=== PATIENT | female | born 1960 | race African-American/Black ===

== ENCOUNTER 2016-12-17 23:28 | Emergency (ER) | payer OTHER ==
[~2016-12-17] VITALS: Ht 177.8 cm; Wt 136.4 kg
[2016-12-18 00:07] LABS: GLUCOSE,POINT OF CARE 115 MG/DL (70-110)
[2016-12-18] MEDS ORDERED: TOPI25 PO (00:29)
[2016-12-18] MEDS ORDERED: OMEG-12 PO (00:29)
[2016-12-18] MEDS ORDERED: VENL50TA44 PO (00:29)
[2016-12-18] MEDS ORDERED: QUET200T PO (00:29)
[2016-12-18] MEDS ORDERED: LURA40 PO (00:29)
[2016-12-18] MEDS ORDERED: AMIT50TA3 PO (00:29)
[2016-12-18] MEDS ORDERED: LITH300C3 PO (00:29)
[2016-12-18] MEDS ORDERED: POTA25TA7 PO (00:29)
[2016-12-18 01:08] LABS: BASOPHILS # (AUTO) 0.03 K/uL (0.00-0.20); BASOPHILS % (AUTO) 0.3 % (0.0-2.0); EOSINOPHILS # (AUTO) 0.02 K/uL (0.00-0.70); EOSINOPHILS % (AUTO) 0.25 % (1.0-6.0); HEMATOCRIT 38.6 % (36-46); HEMOGLOBIN 12.4 g/dL (12.0-16.0); LYMPHOCYTES # (AUTO) 1.5 K/uL (1.0-4.8); LYMPHOCYTES % (AUTO) 17.1 % (22.0-44.0); MEAN CORPUSCULAR HEMOGLOBIN 25.5 pg (26.0-34.0); MEAN CORPUSCULAR HGB CONC 32.2 G/dL (31.0-37.0); MEAN CORPUSCULAR VOLUME 79 fL (80-100); MONOCYTES # (AUTO) 0.5 K/uL (0.1-1.0); MONOCYTES % (AUTO) 5.8 % (2.0-9.0); NEUTROPHILS # (AUTO) 6.6 K/uL (1.8-7.7); NEUTROPHILS % (AUTO) 76.5 % (40.0-70.0); PLATELET COUNT (AUTO) 247 K/uL (150-450); RED BLOOD CELL COUNT(AUTO) 4.86 MIL/uL (4.00-5.20); WHITE BLOOD COUNT (AUTO) 8.6 K/uL (4.5-11.0)
[2016-12-18 01:18] LABS: INR 1.1 (0.9-1.1); PROTHROMBIN TIME 11.1 SEC (9.4-11.6)
[2016-12-18 01:19] LABS: CALCIUM, TOTAL 9.6 mg/dL (8.8-10.5); CREATININE 1.26 mg/dL (0.60-1.30); POTASSIUM 3.4 mmol/L (3.5-5.1)
[2016-12-18 01:25] LABS: ALBUMIN 3.8 g/dL (3.4-5.0); AMMONIA 19 umol/L (11-32); BILIRUBIN,TOTAL 0.3 mg/dL (0.1-1.0); TOTAL PROTEIN, SERUM 7.6 g/dL (6.4-8.2)
[2016-12-18 01:32] LABS: TROPONIN I < 0.02 ng/mL (0.00-0.05)
[2016-12-18] MEDS ORDERED: POTASSIUM CHLORIDE 20 MEQ ER TABLET PO ONE (01:45)
[2016-12-18 02:13] VITALS: BP 135/89
== END 2016-12-18 04:04 | disposition home or self-care (01) ==
LOC: EDBD 23:31 → EMS 23:31
DX: M79.7 Fibromyalgia (principal); I10 Essential (primary) hypertension; Z88.8 Allergy status to other drugs, medicaments and biological substances
CPT/HCPCS: 70450; 82948; 82962; 93005; 99285

== ENCOUNTER 2017-01-22 14:23 | Inpatient (IN) | payer MEDICAID, OTHER ==
[~2017-01-22] VITALS: Ht 180.3 cm; Wt 130.2 kg
[~2017-01-22 14:23] MED LIST: AMIT50TA3 PO; OMEG-12 PO; QUET200T PO; TRAZ-147 PO
[2017-01-22] MEDS ORDERED: ASPIRIN 81 MG CHEWABLE TABLET PO ONE (14:45)
[2017-01-22 15:49] LABS: BASOPHILS # (AUTO) 0.01 K/uL (0.00-0.20); BASOPHILS % (AUTO) 0.1 % (0.0-2.0); EOSINOPHILS # (AUTO) 0.03 K/uL (0.00-0.70); EOSINOPHILS % (AUTO) 0.27 % (1.0-6.0); HEMATOCRIT 47.4 % (36-46); HEMOGLOBIN 15.6 g/dL (12.0-16.0); LYMPHOCYTES # (AUTO) 2.4 K/uL (1.0-4.8); LYMPHOCYTES % (AUTO) 19.9 % (22.0-44.0); MEAN CORPUSCULAR VOLUME 79 fL (80-100); MONOCYTES # (AUTO) 0.3 K/uL (0.1-1.0); MONOCYTES % (AUTO) 2.1 % (2.0-9.0); NEUTROPHILS # (AUTO) 9.4 K/uL (1.8-7.7); NEUTROPHILS % (AUTO) 77.6 % (40.0-70.0); RED BLOOD CELL COUNT(AUTO) 6.01 MIL/uL (4.00-5.20); RED CELL DISTRIBUTION WIDTH 15.3 % (11.5-14.5)
[2017-01-22 16:06] LABS: PLATELET COUNT (AUTO) 173 K/uL (150-450)
[2017-01-22 16:16] LABS: ANION GAP 19 mmol/L (8-16); ASPARTATE AMINOTRANSFERASE 16 U/L (15-37); BILIRUBIN,TOTAL 0.3 mg/dL (0.1-1.0); CARBON DIOXIDE 18 mmol/L (22-29); CHLORIDE 104 mmol/L (98-107); CREATINE KINASE, TOTAL 78 U/L (26-192); POTASSIUM 4.2 mmol/L (3.5-5.1); SODIUM SERUM 141 mmol/L (136-145); TOTAL PROTEIN, SERUM 8.9 g/dL (6.4-8.2); UREA NITROGEN, BLOOD 15 mg/dL (7-18)
[2017-01-22 16:25] LABS: B-TYPE NATRIURETIC PEPTIDE 5 pg/mL (0-100)
[2017-01-22 16:29] LABS: ALANINE AMINOTRANSFERASE 19 U/L (12-78); ALBUMIN 4.2 g/dL (3.4-5.0); CALCIUM, TOTAL 9.8 mg/dL (8.8-10.5); CREATINE KINASE MB < 0.5 ng/mL (0-5); GLOMERULAR FILTR. RATE CALC > 60 mL/min (>60)
[2017-01-22] MEDS ORDERED: ACETAMINOPHEN 500 MG TABLET PO ONE (17:00)
[2017-01-22 17:04] LABS: APPEARANCE,URINE CLOUDY (CLEAR); GLUCOSE, URINE (UA) NEGATIVE (NEGATIVE); KETONES,URINE 15 mg/dL (NEGATIVE); LEUKOCYTE ESTERASE ,URINE SMALL (NEGATIVE); OCCULT BLOOD,URINE SMALL (NEGATIVE); PH,URINE 5.5 (5.0-8.0); PROTEIN,URINE POS 1+ (NEGATIVE)
[2017-01-22 17:08] LABS: ADD UA MICROSCOPIC YES
[2017-01-22 17:09] LABS: SQUAMOUS EPITHELIAL CELL,UR Moderate /LPF (None Seen)
[2017-01-22] MEDS ORDERED: LEVOFLOXACIN 500 MG TABLET PO ONE (17:45)
[2017-01-22] MEDS ORDERED: AMOX TR/POT CLAV 875 MG/125 MG TABLET PO ONE (18:00)
[2017-01-22] MEDS ORDERED: QUEtiapine FUMARATE 200 MG TABLET PO ONE (18:00)
[2017-01-22] MEDS ORDERED: ZOLPIDEM TARTRATE 10 MG TABLET PO PRN (18:45)
[2017-01-22 19:18] LABS: CHOL/HDL RATIO 5.1 (3.9-5.7)
[2017-01-22] MEDS: LORazepam 2 MG TABLET PO PRN (19:45)
[2017-01-22] MEDS: QUEtiapine FUMARATE 200 MG TABLET PO SCH (21:00)
[2017-01-22] MEDS: AMITRIPTYLINE HCL 50 MG TABLET PO SCH (21:11)
[2017-01-22] MEDS: TraZODone HCL 100 MG TABLET PO SCH (21:12)
[2017-01-23 00:10] VITALS: BP 98/74
[2017-01-23] MEDS: QUEtiapine FUMARATE 200 MG TABLET PO SCH ×2 (08:07→20:29)
[2017-01-23] MEDS ORDERED: ACETAMINOPHEN 325 MG TABLET PO PRN (12:15)
[2017-01-23 14:24] VITALS: BP 115/70
[2017-01-23] MEDS: QUEtiapine FUMARATE 100 MG TABLET PO PRN (17:52)
[2017-01-23 20:05] VITALS: BP 99/70
[2017-01-23] MEDS: AMITRIPTYLINE HCL 50 MG TABLET PO SCH (20:29)
[2017-01-23] MEDS: NITROFURANTOIN/NITROFURAN MAC 100 MG CAPSULE [MACROBID] PO SCH (20:29)
[2017-01-23] MEDS: SIMVASTATIN 10 MG TABLET PO SCH (20:29)
[2017-01-23] MEDS: TraZODone HCL 100 MG TABLET PO SCH (20:29)
[2017-01-23 20:53] VITALS: BP 134/70
[2017-01-24] MEDS: NITROFURANTOIN/NITROFURAN MAC 100 MG CAPSULE [MACROBID] PO SCH ×2 (09:01→20:54)
[2017-01-24] MEDS: OMEGA-3/DHA/EPA/FISH OIL 500 MG CAPSULE PO SCH (09:01)
[2017-01-24] MEDS: QUEtiapine FUMARATE 200 MG TABLET PO SCH ×2 (09:01→20:54)
[2017-01-24 09:19] VITALS: BP 100/49
[2017-01-24] MEDS: QUEtiapine FUMARATE 100 MG TABLET PO PRN ×2 (12:23→19:37)
[2017-01-24 19:30] VITALS: BP 120/72
[2017-01-24 20:50] VITALS: BP 123/96
[2017-01-24] MEDS: TraZODone HCL 100 MG TABLET PO SCH (20:54)
[2017-01-24] MEDS: AMITRIPTYLINE HCL 50 MG TABLET PO SCH (20:54)
[2017-01-24] MEDS: SIMVASTATIN 10 MG TABLET PO SCH (20:55)
[2017-01-25 04:27] VITALS: BP 110/65
[2017-01-25 09:00] VITALS: BP 114/74
[2017-01-25] MEDS: NITROFURANTOIN/NITROFURAN MAC 100 MG CAPSULE [MACROBID] PO SCH ×2 (09:18→16:24)
[2017-01-25] MEDS: OMEGA-3/DHA/EPA/FISH OIL 500 MG CAPSULE PO SCH (09:19)
[2017-01-25] MEDS: QUEtiapine FUMARATE 200 MG TABLET PO SCH ×2 (09:20→20:16)
[2017-01-25] MEDS: QUEtiapine FUMARATE 100 MG TABLET PO PRN ×2 (12:41→16:58)
[2017-01-25 16:20] VITALS: BP 160/84
[2017-01-25] MEDS: AMITRIPTYLINE HCL 50 MG TABLET PO SCH (20:16)
[2017-01-25] MEDS: TraZODone HCL 100 MG TABLET PO SCH (20:16)
[2017-01-25] MEDS: SIMVASTATIN 10 MG TABLET PO SCH (20:18)
[2017-01-26] MEDS: QUEtiapine FUMARATE 200 MG TABLET PO SCH ×2 (08:22→20:20)
[2017-01-26] MEDS: NITROFURANTOIN/NITROFURAN MAC 100 MG CAPSULE [MACROBID] PO SCH ×2 (08:22→16:39)
[2017-01-26] MEDS: OMEGA-3/DHA/EPA/FISH OIL 500 MG CAPSULE PO SCH (08:23)
[2017-01-26 09:30] VITALS: BP 142/98
[2017-01-26] MEDS: QUEtiapine FUMARATE 100 MG TABLET PO PRN ×3 (12:43→23:51)
[2017-01-26] MEDS: LORazepam 2 MG TABLET PO PRN (15:57)
[2017-01-26 16:04] VITALS: BP 139/87
[2017-01-26] MEDS: AMITRIPTYLINE HCL 50 MG TABLET PO SCH (20:21)
[2017-01-26] MEDS: SIMVASTATIN 10 MG TABLET PO SCH (20:21)
[2017-01-26] MEDS: TraZODone HCL 100 MG TABLET PO SCH (20:21)
[2017-01-26 23:45] VITALS: BP 107/90
[2017-01-27 02:45] VITALS: BP 129/75
[2017-01-27 08:00] VITALS: BP 121/73
[2017-01-27] MEDS: OMEGA-3/DHA/EPA/FISH OIL 500 MG CAPSULE PO SCH (09:54)
[2017-01-27] MEDS: QUEtiapine FUMARATE 200 MG TABLET PO SCH ×2 (09:55→21:10)
[2017-01-27] MEDS: NITROFURANTOIN/NITROFURAN MAC 100 MG CAPSULE [MACROBID] PO SCH ×2 (09:55→16:04)
[2017-01-27] MEDS: QUEtiapine FUMARATE 100 MG TABLET PO PRN ×2 (10:58→15:13)
[2017-01-27] MEDS: LORazepam 2 MG TABLET PO PRN ×2 (10:58→15:13)
[2017-01-27 17:40] VITALS: BP 131/76
[2017-01-27] MEDS: TraZODone HCL 100 MG TABLET PO SCH (21:10)
[2017-01-27] MEDS: AMITRIPTYLINE HCL 50 MG TABLET PO SCH (21:11)
[2017-01-27] MEDS: SIMVASTATIN 10 MG TABLET PO SCH (21:11)
[2017-01-28] MEDS: QUEtiapine FUMARATE 100 MG TABLET PO PRN ×2 (03:55→15:21)
[2017-01-28 03:58] VITALS: BP 124/74
[2017-01-28 08:10] VITALS: BP 130/79
[2017-01-28] MEDS: QUEtiapine FUMARATE 200 MG TABLET PO SCH ×2 (09:06→20:21)
[2017-01-28] MEDS: NITROFURANTOIN/NITROFURAN MAC 100 MG CAPSULE [MACROBID] PO SCH ×2 (09:06→16:34)
[2017-01-28] MEDS: OMEGA-3/DHA/EPA/FISH OIL 500 MG CAPSULE PO SCH (09:06)
[2017-01-28] MEDS: LORazepam 2 MG TABLET PO PRN (15:21)
[2017-01-28 17:15] VITALS: BP 145/97
[2017-01-28] MEDS: AMITRIPTYLINE HCL 50 MG TABLET PO SCH (20:21)
[2017-01-28] MEDS: TraZODone HCL 100 MG TABLET PO SCH (20:22)
[2017-01-28] MEDS: SIMVASTATIN 10 MG TABLET PO SCH (20:22)
[2017-01-29 04:06] VITALS: BP 122/80
[2017-01-29] MEDS: QUEtiapine FUMARATE 100 MG TABLET PO PRN ×2 (04:12→14:38)
[2017-01-29 08:49] VITALS: BP 113/70
[2017-01-29] MEDS: QUEtiapine FUMARATE 200 MG TABLET PO SCH ×2 (08:57→20:51)
[2017-01-29] MEDS: OMEGA-3/DHA/EPA/FISH OIL 500 MG CAPSULE PO SCH (08:58)
[2017-01-29 16:38] VITALS: BP 122/76
[2017-01-29] MEDS: AMITRIPTYLINE HCL 50 MG TABLET PO SCH (20:51)
[2017-01-29] MEDS: PRAZOSIN HCL 1 MG CAPSULE PO SCH (20:51)
[2017-01-29] MEDS: TraZODone HCL 100 MG TABLET PO SCH (20:51)
[2017-01-29] MEDS: SIMVASTATIN 10 MG TABLET PO SCH (20:51)
[2017-01-30 08:05] VITALS: BP 118/68
[2017-01-30] MEDS: QUEtiapine FUMARATE 200 MG TABLET PO SCH ×2 (08:28→20:18)
[2017-01-30] MEDS: OMEGA-3/DHA/EPA/FISH OIL 500 MG CAPSULE PO SCH (08:28)
[2017-01-30] MEDS: QUEtiapine FUMARATE 100 MG TABLET PO PRN ×2 (13:29→18:25)
[2017-01-30 16:29] VITALS: BP 127/76
[2017-01-30] MEDS: LORazepam 2 MG TABLET PO PRN (18:25)
[2017-01-30] MEDS: AMITRIPTYLINE HCL 50 MG TABLET PO SCH (20:17)
[2017-01-30] MEDS: TraZODone HCL 100 MG TABLET PO SCH (20:17)
[2017-01-30] MEDS: SIMVASTATIN 10 MG TABLET PO SCH (20:18)
[2017-01-30] MEDS: PRAZOSIN HCL 1 MG CAPSULE PO SCH (20:18)
[2017-01-31 06:10] VITALS: BP 130/69
[2017-01-31] MEDS: QUEtiapine FUMARATE 100 MG TABLET PO PRN ×2 (06:10→16:16)
[2017-01-31 08:50] VITALS: BP 145/88
[2017-01-31] MEDS: OMEGA-3/DHA/EPA/FISH OIL 500 MG CAPSULE PO SCH (09:04)
[2017-01-31] MEDS: QUEtiapine FUMARATE 200 MG TABLET PO SCH (09:04)
[2017-01-31] MEDS ORDERED: SIMV-259 PO (12:18)
[2017-01-31] MEDS ORDERED: PRAZ1 PO (12:19)
[2017-01-31] MEDS: LORazepam 2 MG TABLET PO PRN (16:16)
== END 2017-01-31 16:45 | disposition home or self-care (01) | DRG 750 ==
LOC: EMS 14:26 → AHU 23:54 → 3EI 01-25 04:05
PROVIDERS: ADMIT Psychiatry & Neurology Child & Adolescent Psychiatry; ATTEND Psychiatry & Neurology Child & Adolescent Psychiatry
DX: F25.1 Schizoaffective disorder, depressive type (principal); R45.851 Suicidal ideations; I69.354 Hemiplegia and hemiparesis following cerebral infarction affecting left non-dominant side; I10 Essential (primary) hypertension; F41.9 Anxiety disorder, unspecified; E78.5 Hyperlipidemia, unspecified; F17.200 Nicotine dependence, unspecified, uncomplicated; G47.00 Insomnia, unspecified; J44.9 Chronic obstructive pulmonary disease, unspecified; J98.11 Atelectasis; K59.00 Constipation, unspecified; M79.7 Fibromyalgia; N39.0 Urinary tract infection, site not specified; Z79.82 Long term (current) use of aspirin; F14.90 Cocaine use, unspecified, uncomplicated; M54.9 Dorsalgia, unspecified; Z56.0 Unemployment, unspecified; Z71.6 Tobacco abuse counseling; D72.829 Elevated white blood cell count, unspecified; Z79.899 Other long term (current) drug therapy; Z88.3 Allergy status to other anti-infective agents; Z88.8 Allergy status to other drugs, medicaments and biological substances
CPT/HCPCS: 87081; 87086; 93005; 99285

== ENCOUNTER 2017-08-22 11:17 | Inpatient (IN) | payer MEDICAID, OTHER ==
[~2017-08-22] VITALS: Ht 180.3 cm; Wt 142.0 kg
[~2017-08-22 11:17] MED LIST changes: -AMIT50TA3 PO; +AUD NEB; +DIVA500T35 PO; +DSS100 PO; +IPRNEB NEB; -OMEG-12 PO; +PRAZ1 PO; +PREG75 PO; -QUET200T PO; +QUET200XR PO; -TRAZ-147 PO; +VENL-67 PO; +VENL-68 PO
[2017-08-22] MEDS ORDERED: ATOR20TA86 PO (11:36)
[2017-08-22] MEDS ORDERED: VIST50 PO (11:36)
[2017-08-22] MEDS ORDERED: GABA-531 PO (11:36)
[2017-08-22 12:05] LABS: EOSINOPHILS % (AUTO) 1.5 % (1.0-6.0); HEMATOCRIT 37.8 % (36-46); HEMOGLOBIN 12.6 g/dL (12.0-16.0); LYMPHOCYTES # (AUTO) 1.8 K/uL (1.0-4.8); LYMPHOCYTES % (AUTO) 26.1 % (22.0-44.0); MEAN CORPUSCULAR HEMOGLOBIN 26.4 pg (26.0-34.0); MEAN CORPUSCULAR HGB CONC 33.3 G/dL (31.0-37.0); MEAN CORPUSCULAR VOLUME 79 fL (80-100); MONOCYTES # (AUTO) 1.1 K/uL (0.1-1.0); MONOCYTES % (AUTO) 15.7 % (2.0-9.0); NEUTROPHILS # (AUTO) 3.8 K/uL (1.8-7.7); NEUTROPHILS % (AUTO) 55.7 % (40.0-70.0); PLATELET COUNT (AUTO) 291 K/uL (150-450); RED BLOOD CELL COUNT(AUTO) 4.76 MIL/uL (4.00-5.20); RED CELL DISTRIBUTION WIDTH 16.7 % (11.5-14.5)
[2017-08-22 12:14] LABS: ANION GAP 7 mmol/L (8-16); CARBON DIOXIDE 27 mmol/L (22-29); CHLORIDE 104 mmol/L (98-107); CREATININE 0.91 mg/dL (0.60-1.30); GLOMERULAR FILTR. RATE CALC > 60 mL/min (>60); GLUCOSE,RANDOM 77 mg/dL (70-110); SODIUM SERUM 138 mmol/L (136-145); UREA NITROGEN, BLOOD 19 mg/dL (7-18)
[2017-08-22 12:20] LABS: ALANINE AMINOTRANSFERASE 15 U/L (12-78); ALBUMIN 3.3 g/dL (3.4-5.0); ALKALINE PHOSPHATASE 104 U/L (46-116); ASPARTATE AMINOTRANSFERASE 12 U/L (15-37); BILIRUBIN,TOTAL 0.1 mg/dL (0.1-1.0); TOTAL PROTEIN, SERUM 7.8 g/dL (6.4-8.2)
[2017-08-22 12:36] LABS: AMPHET/METH SCREEN,URINE NEGATIVE (NEGATIVE); BARBITURATE SCREEN, URINE NEGATIVE (NEGATIVE); BENZODIAZEPINES SCREEN,URINE NEGATIVE (NEGATIVE); CANNABINOID SCREEN,URINE NEGATIVE (NEGATIVE); COCAINE SCREEN,URINE NEGATIVE (NEGATIVE); METHADONE SCREEN, URINE NEGATIVE (NEGATIVE); OPIATE SCREEN,URINE NEGATIVE (NEGATIVE)
[2017-08-22 12:38] LABS: PHENCYCLIDINE SCREEN,URINE NEGATIVE (NEGATIVE)
[2017-08-22 19:38] VITALS: BP 137/80
[2017-08-22] MEDS ORDERED: BENZOCAINE/MENTHOL LOZENGE MM PRN (20:00)
[2017-08-22] MEDS ORDERED: CloNIDine HCL 0.1 MG TABLET PO PRN (20:00)
[2017-08-22] MEDS ORDERED: MAGNESIUM HYDROXIDE SUSPENSION 30 ML UDCUP PO PRN (20:00)
[2017-08-22] MEDS ORDERED: ONDANSETRON HCL 4 MG TABLET PO PRN (20:00)
[2017-08-22] MEDS ORDERED: BACITRACIN 28.4 GM OINTMENT TP PRN (20:00)
[2017-08-22] MEDS ORDERED: PETROLATUM,WHITE 71 GM JELLY TP PRN (20:00)
[2017-08-22] MEDS ORDERED: MAG HYDROX/AL HYDROX/SIMETH ES 30 ML SUSPENSION UDCUP PO PRN (20:00)
[2017-08-22] MEDS ORDERED: ALBUTEROL SULFATE HFA 90 MCG/PUFF 8 GM INHALER IH PRN (20:00)
[2017-08-22] MEDS ORDERED: LOPERAMIDE HCL 2 MG CAPSULE PO PRN (20:00)
[2017-08-22] MEDS ORDERED: IBUPROFEN 600 MG TABLET PO PRN (20:00)
[2017-08-22] MEDS ORDERED: ACETAMINOPHEN 325 MG TABLET PO PRN (20:00)
[2017-08-22] MEDS: ZOLPIDEM TARTRATE 10 MG TABLET PO PRN (20:19)
[2017-08-22] MEDS: HALOPERIDOL 5 MG TABLET PO PRN (20:19)
[2017-08-22] MEDS: ATORVASTATIN CALCIUM 20 MG TABLET PO SCH (21:50)
[2017-08-23] MEDS: DOCUSATE SODIUM 100 MG CAPSULE PO SCH (09:23)
[2017-08-23] MEDS: OMEPRAZOLE 20 MG CAPSULE PO SCH (09:23)
[2017-08-23] MEDS: ATENOLOL 50 MG TABLET PO SCH (09:24)
[2017-08-23] MEDS: PREGABALIN 75 MG CAPSULE PO SCH ×2 (09:25→15:53)
[2017-08-23] MEDS: HALOPERIDOL 5 MG TABLET PO PRN ×2 (09:27→15:53)
[2017-08-23 09:30] VITALS: BP 114/79
[2017-08-23 10:08] LABS: CHOL/HDL RATIO 5.2 (3.9-5.7); FREE T4 (FREE THYROXINE) 0.49 ng/dL (0.76-1.46); THYROID STIMULATING HORMONE 2.74 uIU/mL (0.36-3.74)
[2017-08-23] MEDS: DIVALPROEX SODIUM 500 MG ER TABLET PO SCH (17:08)
[2017-08-23 17:42] VITALS: BP 135/80
[2017-08-23 20:56] VITALS: BP 129/78
[2017-08-23] MEDS: ATORVASTATIN CALCIUM 20 MG TABLET PO SCH (20:59)
[2017-08-23] MEDS: PRAZOSIN HCL 1 MG CAPSULE PO SCH (20:59)
[2017-08-23] MEDS: QUEtiapine FUMARATE 200 MG ER TABLET PO SCH (20:59)
[2017-08-24 08:00] VITALS: BP 119/69
[2017-08-24] MEDS: DIVALPROEX SODIUM 500 MG ER TABLET PO SCH ×2 (09:37→16:01)
[2017-08-24] MEDS: VENLAFAXINE HCL 75 MG ER CAPSULE PO SCH (09:38)
[2017-08-24] MEDS: OMEPRAZOLE 20 MG CAPSULE PO SCH (09:38)
[2017-08-24] MEDS: DOCUSATE SODIUM 100 MG CAPSULE PO SCH (09:38)
[2017-08-24] MEDS: PREGABALIN 75 MG CAPSULE PO SCH ×2 (09:39→16:01)
[2017-08-24] MEDS: ATENOLOL 50 MG TABLET PO SCH (09:39)
[2017-08-24] MEDS: HALOPERIDOL 5 MG TABLET PO PRN (16:01)
[2017-08-24 18:55] VITALS: BP 113/71
[2017-08-24] MEDS: PRAZOSIN HCL 1 MG CAPSULE PO SCH (20:08)
[2017-08-24] MEDS: QUEtiapine FUMARATE 200 MG ER TABLET PO SCH (20:08)
[2017-08-24] MEDS: ATORVASTATIN CALCIUM 20 MG TABLET PO SCH (20:08)
[2017-08-25 02:00] VITALS: BP 118/78
[2017-08-25] MEDS: ZOLPIDEM TARTRATE 10 MG TABLET PO PRN (02:03)
[2017-08-25 09:22] VITALS: BP 116/53
[2017-08-25] MEDS: DIVALPROEX SODIUM 500 MG ER TABLET PO SCH ×2 (09:22→16:08)
[2017-08-25] MEDS: VENLAFAXINE HCL 75 MG ER CAPSULE PO SCH (09:22)
[2017-08-25] MEDS: PREGABALIN 75 MG CAPSULE PO SCH ×2 (09:23→16:09)
[2017-08-25] MEDS: DOCUSATE SODIUM 100 MG CAPSULE PO SCH (09:23)
[2017-08-25] MEDS: ATENOLOL 50 MG TABLET PO SCH (09:23)
[2017-08-25] MEDS: OMEGA-3/DHA/EPA/FISH OIL 1,000 MG CAPSULE PO SCH (09:23)
[2017-08-25] MEDS: OMEPRAZOLE 20 MG CAPSULE PO SCH (09:23)
[2017-08-25] MEDS: HALOPERIDOL 5 MG TABLET PO PRN ×2 (09:25→14:31)
[2017-08-25 17:41] VITALS: BP 114/68
[2017-08-25] MEDS: ATORVASTATIN CALCIUM 20 MG TABLET PO SCH (20:09)
[2017-08-25] MEDS: PRAZOSIN HCL 1 MG CAPSULE PO SCH (20:10)
[2017-08-25] MEDS: QUEtiapine FUMARATE 200 MG ER TABLET PO SCH (20:10)
[2017-08-26 08:14] VITALS: BP 141/75
[2017-08-26] MEDS: OMEPRAZOLE 20 MG CAPSULE PO SCH (08:20)
[2017-08-26] MEDS: DIVALPROEX SODIUM 500 MG ER TABLET PO SCH ×2 (08:21→16:22)
[2017-08-26] MEDS: OMEGA-3/DHA/EPA/FISH OIL 1,000 MG CAPSULE PO SCH (08:21)
[2017-08-26] MEDS: ATENOLOL 50 MG TABLET PO SCH (08:21)
[2017-08-26] MEDS: VENLAFAXINE HCL 75 MG ER CAPSULE PO SCH (08:21)
[2017-08-26] MEDS: PREGABALIN 75 MG CAPSULE PO SCH ×2 (08:21→16:22)
[2017-08-26] MEDS: HALOPERIDOL 5 MG TABLET PO PRN ×2 (08:21→16:21)
[2017-08-26] MEDS: DOCUSATE SODIUM 100 MG CAPSULE PO SCH (08:32)
[2017-08-26] MEDS: LORazepam 2 MG TABLET PO PRN ×2 (11:00→16:21)
[2017-08-26 16:40] VITALS: BP 129/79
[2017-08-26] MEDS: QUEtiapine FUMARATE 200 MG ER TABLET PO SCH (21:52)
[2017-08-26] MEDS: ATORVASTATIN CALCIUM 20 MG TABLET PO SCH (21:52)
[2017-08-26] MEDS: PRAZOSIN HCL 1 MG CAPSULE PO SCH (21:52)
[2017-08-27] MEDS: ZOLPIDEM TARTRATE 10 MG TABLET PO PRN (01:15)
[2017-08-27 04:48] VITALS: BP 135/77
[2017-08-27 08:43] VITALS: BP 117/72
[2017-08-27] MEDS: VENLAFAXINE HCL 75 MG ER CAPSULE PO SCH (09:08)
[2017-08-27] MEDS: DIVALPROEX SODIUM 500 MG ER TABLET PO SCH ×2 (09:08→17:22)
[2017-08-27] MEDS: OMEPRAZOLE 20 MG CAPSULE PO SCH (09:09)
[2017-08-27] MEDS: PREGABALIN 75 MG CAPSULE PO SCH ×2 (09:10→17:21)
[2017-08-27] MEDS: OMEGA-3/DHA/EPA/FISH OIL 1,000 MG CAPSULE PO SCH (09:10)
[2017-08-27] MEDS: ATENOLOL 50 MG TABLET PO SCH (09:10)
[2017-08-27] MEDS: DOCUSATE SODIUM 100 MG CAPSULE PO SCH (09:11)
[2017-08-27] MEDS: ATORVASTATIN CALCIUM 20 MG TABLET PO SCH (20:07)
[2017-08-27] MEDS: PRAZOSIN HCL 1 MG CAPSULE PO SCH (20:07)
[2017-08-27] MEDS: QUEtiapine FUMARATE 200 MG ER TABLET PO SCH (20:08)
[2017-08-27 20:22] VITALS: BP 130/79
[2017-08-28] MEDS: HALOPERIDOL 5 MG TABLET PO PRN ×2 (04:12→08:24)
[2017-08-28 05:23] VITALS: BP 97/59
[2017-08-28] MEDS: DOCUSATE SODIUM 100 MG CAPSULE PO SCH (08:06)
[2017-08-28] MEDS: PREGABALIN 75 MG CAPSULE PO SCH ×2 (08:07→16:36)
[2017-08-28] MEDS: DIVALPROEX SODIUM 500 MG ER TABLET PO SCH ×2 (08:07→16:36)
[2017-08-28] MEDS: VENLAFAXINE HCL 75 MG ER CAPSULE PO SCH (08:07)
[2017-08-28] MEDS: OMEGA-3/DHA/EPA/FISH OIL 1,000 MG CAPSULE PO SCH (08:07)
[2017-08-28] MEDS: OMEPRAZOLE 20 MG CAPSULE PO SCH (08:08)
[2017-08-28] MEDS: ATENOLOL 50 MG TABLET PO SCH (08:08)
[2017-08-28 08:32] VITALS: BP 111/63
[2017-08-28 17:11] VITALS: BP 121/73
[2017-08-28] MEDS: PRAZOSIN HCL 1 MG CAPSULE PO SCH (20:14)
[2017-08-28] MEDS: ATORVASTATIN CALCIUM 20 MG TABLET PO SCH (20:14)
[2017-08-28] MEDS: QUEtiapine FUMARATE 200 MG ER TABLET PO SCH (20:14)
[2017-08-29] MEDS: HALOPERIDOL 5 MG TABLET PO PRN ×2 (01:03→16:07)
[2017-08-29] MEDS: ZOLPIDEM TARTRATE 10 MG TABLET PO PRN ×2 (01:03→21:52)
[2017-08-29 01:37] VITALS: BP 101/56
[2017-08-29 08:48] VITALS: BP 103/53
[2017-08-29] MEDS: ATENOLOL 50 MG TABLET PO SCH (09:00)
[2017-08-29] MEDS: VENLAFAXINE HCL 75 MG ER CAPSULE PO SCH (09:01)
[2017-08-29] MEDS: DIVALPROEX SODIUM 500 MG ER TABLET PO SCH ×2 (09:01→16:05)
[2017-08-29] MEDS: OMEGA-3/DHA/EPA/FISH OIL 1,000 MG CAPSULE PO SCH (09:01)
[2017-08-29] MEDS: PREGABALIN 75 MG CAPSULE PO SCH ×2 (09:01→16:06)
[2017-08-29] MEDS: DOCUSATE SODIUM 100 MG CAPSULE PO SCH (09:01)
[2017-08-29] MEDS: OMEPRAZOLE 20 MG CAPSULE PO SCH (09:01)
[2017-08-29] MEDS ORDERED: LORazepam 2 MG/ML VIAL IM ONE (14:15)
[2017-08-29] MEDS ORDERED: DiphenhydrAMINE HCL 50 MG/ML VIAL IM ONE (14:15)
[2017-08-29] MEDS ORDERED: HALOPERIDOL LACTATE 5 MG/ML VIAL IM ONE (14:15)
[2017-08-29] MEDS: LORazepam 2 MG TABLET PO PRN (16:07)
[2017-08-29 17:08] VITALS: BP 118/68
[2017-08-29] MEDS: ATORVASTATIN CALCIUM 20 MG TABLET PO SCH (20:12)
[2017-08-29] MEDS: PRAZOSIN HCL 1 MG CAPSULE PO SCH (20:12)
[2017-08-29] MEDS: QUEtiapine FUMARATE 200 MG ER TABLET PO SCH (20:12)
[2017-08-30 06:14] VITALS: BP 116/71
[2017-08-30 08:00] VITALS: BP 128/85
[2017-08-30] MEDS: VENLAFAXINE HCL 75 MG ER CAPSULE PO SCH (08:54)
[2017-08-30] MEDS: DIVALPROEX SODIUM 500 MG ER TABLET PO SCH ×2 (08:54→16:08)
[2017-08-30] MEDS: DOCUSATE SODIUM 100 MG CAPSULE PO SCH (08:54)
[2017-08-30] MEDS: OMEGA-3/DHA/EPA/FISH OIL 1,000 MG CAPSULE PO SCH (08:55)
[2017-08-30] MEDS: OMEPRAZOLE 20 MG CAPSULE PO SCH (08:56)
[2017-08-30] MEDS: PREGABALIN 75 MG CAPSULE PO SCH ×2 (08:56→16:08)
[2017-08-30] MEDS: ATENOLOL 50 MG TABLET PO SCH (08:56)
[2017-08-30 16:46] VITALS: BP 133/88
[2017-08-30] MEDS: PRAZOSIN HCL 1 MG CAPSULE PO SCH (20:15)
[2017-08-30] MEDS: ATORVASTATIN CALCIUM 20 MG TABLET PO SCH (20:15)
[2017-08-30] MEDS: QUEtiapine FUMARATE 200 MG ER TABLET PO SCH (20:15)
[2017-08-30] MEDS: ZOLPIDEM TARTRATE 10 MG TABLET PO PRN (20:31)
[2017-08-31 01:12] VITALS: BP 127/79
[2017-08-31 08:00] VITALS: BP 108/63
[2017-08-31] MEDS: ATENOLOL 50 MG TABLET PO SCH (09:00)
[2017-08-31] MEDS: DIVALPROEX SODIUM 500 MG ER TABLET PO SCH (09:52)
[2017-08-31] MEDS: OMEPRAZOLE 20 MG CAPSULE PO SCH (09:53)
[2017-08-31] MEDS: VENLAFAXINE HCL 75 MG ER CAPSULE PO SCH (09:53)
[2017-08-31] MEDS: PREGABALIN 75 MG CAPSULE PO SCH (09:53)
[2017-08-31] MEDS: OMEGA-3/DHA/EPA/FISH OIL 1,000 MG CAPSULE PO SCH (09:53)
[2017-08-31] MEDS: DOCUSATE SODIUM 100 MG CAPSULE PO SCH (09:58)
[2017-08-31] MEDS ORDERED: VENL-67 PO (12:08)
[2017-08-31] MEDS ORDERED: ATEN50TA PO (12:09)
[2017-08-31] MEDS ORDERED: DSS100 PO (12:11)
[2017-08-31] MEDS ORDERED: OMEG-135 PO (12:11)
[2017-08-31] MEDS ORDERED: PRAZ1 PO (12:12)
[2017-08-31] MEDS ORDERED: OMEP20 PO (12:12)
== END 2017-08-31 16:12 | disposition home or self-care (01) | DRG 750 ==
LOC: EMS 11:18 → 3EI 17:13
PROVIDERS: ADMIT Psychiatry & Neurology Psychiatry; ATTEND Psychiatry & Neurology Psychiatry
DX: F25.1 Schizoaffective disorder, depressive type (principal); R45.851 Suicidal ideations; I69.354 Hemiplegia and hemiparesis following cerebral infarction affecting left non-dominant side; I10 Essential (primary) hypertension; F60.3 Borderline personality disorder; E78.00 Pure hypercholesterolemia, unspecified; E78.5 Hyperlipidemia, unspecified; F41.9 Anxiety disorder, unspecified; G47.00 Insomnia, unspecified; G89.29 Other chronic pain; J44.9 Chronic obstructive pulmonary disease, unspecified; E66.9 Obesity, unspecified; K57.90 Diverticulosis of intestine, part unspecified, without perforation or abscess without bleeding; M79.7 Fibromyalgia; K59.00 Constipation, unspecified; F17.200 Nicotine dependence, unspecified, uncomplicated; F12.90 Cannabis use, unspecified, uncomplicated; Z88.8 Allergy status to other drugs, medicaments and biological substances; Z79.899 Other long term (current) drug therapy; Z56.0 Unemployment, unspecified; Z91.5 Personal history of self-harm; M54.9 Dorsalgia, unspecified; Z71.6 Tobacco abuse counseling; Z68.41 Body mass index [BMI] 40.0-44.9, adult
CPT/HCPCS: 84439; 84443; 87081; 99285; G0480

== ENCOUNTER 2017-09-12 03:13 | Inpatient (IN) | payer MEDICAID, OTHER ==
[~2017-09-12] VITALS: Ht 180.3 cm; Wt 142.0 kg
[~2017-09-12 03:13] MED LIST changes: +ATEN50TA PO; +ATOR20TA86 PO; -AUD NEB; -IPRNEB NEB; +OMEG-135 PO; +OMEP20 PO; -VENL-68 PO
[2017-09-12 03:48] LABS: BASOPHILS % (AUTO) 1.2 % (0.0-2.0); EOSINOPHILS % (AUTO) 0.8 % (1.0-6.0); HEMATOCRIT 35.7 % (36-46); HEMOGLOBIN 12.1 g/dL (12.0-16.0); MEAN CORPUSCULAR HEMOGLOBIN 27.3 pg (26.0-34.0); MEAN CORPUSCULAR HGB CONC 33.9 G/dL (31.0-37.0); MEAN CORPUSCULAR VOLUME 81 fL (80-100); MONOCYTES # (AUTO) 0.6 K/uL (0.1-1.0); MONOCYTES % (AUTO) 11.2 % (2.0-9.0); NEUTROPHILS # (AUTO) 2.3 K/uL (1.8-7.7); NEUTROPHILS % (AUTO) 46.8 % (40.0-70.0); PLATELET COUNT (AUTO) 106 K/uL (150-450); RED BLOOD CELL COUNT(AUTO) 4.43 MIL/uL (4.00-5.20); RED CELL DISTRIBUTION WIDTH 16.2 % (11.5-14.5)
[2017-09-12 04:00] LABS: ANION GAP 8 mmol/L (8-16); CALCIUM, TOTAL 8.8 mg/dL (8.8-10.5); CARBON DIOXIDE 28 mmol/L (22-29); CHLORIDE 105 mmol/L (98-107); GLOMERULAR FILTR. RATE CALC > 60 mL/min (>60); GLUCOSE,RANDOM 108 mg/dL (70-110); POTASSIUM 3.6 mmol/L (3.5-5.1); SODIUM SERUM 141 mmol/L (136-145); UREA NITROGEN, BLOOD 17 mg/dL (7-18)
[2017-09-12 04:06] LABS: ALANINE AMINOTRANSFERASE 17 U/L (12-78); ALBUMIN 3.1 g/dL (3.4-5.0); ALKALINE PHOSPHATASE 85 U/L (46-116); ASPARTATE AMINOTRANSFERASE 14 U/L (15-37); BILIRUBIN,TOTAL 0.1 mg/dL (0.1-1.0); TOTAL PROTEIN, SERUM 7.2 g/dL (6.4-8.2); VALPROIC ACID 136 mcg/mL (50-100)
[2017-09-12 04:23] LABS: AMPHET/METH SCREEN,URINE NEGATIVE (NEGATIVE); BARBITURATE SCREEN, URINE NEGATIVE (NEGATIVE); BENZODIAZEPINES SCREEN,URINE NEGATIVE (NEGATIVE); CANNABINOID SCREEN,URINE POSITIVE (NEGATIVE); COCAINE SCREEN,URINE NEGATIVE (NEGATIVE); METHADONE SCREEN, URINE NEGATIVE (NEGATIVE); OPIATE SCREEN,URINE NEGATIVE (NEGATIVE); PHENCYCLIDINE SCREEN,URINE NEGATIVE (NEGATIVE)
[2017-09-12 06:12] LABS: SALICYLATE < 2.8 mg/dL (2.8-20.0)
[2017-09-12 06:15] LABS: VALPROIC ACID 119 mcg/mL (50-100)
[2017-09-12 06:16] LABS: ACETAMINOPHEN < 2 mcg/mL (10-30)
[2017-09-12] MEDS ORDERED: MAG HYDROX/AL HYDROX/SIMETH ES 30 ML SUSPENSION UDCUP PO PRN (09:00)
[2017-09-12] MEDS ORDERED: BACITRACIN 28.4 GM OINTMENT TP PRN (09:00)
[2017-09-12] MEDS ORDERED: LOPERAMIDE HCL 2 MG CAPSULE PO PRN (09:00)
[2017-09-12] MEDS ORDERED: CloNIDine HCL 0.1 MG TABLET PO PRN (09:00)
[2017-09-12] MEDS ORDERED: BENZOCAINE/MENTHOL LOZENGE MM PRN (09:00)
[2017-09-12] MEDS ORDERED: MAGNESIUM HYDROXIDE SUSPENSION 30 ML UDCUP PO PRN (09:00)
[2017-09-12] MEDS ORDERED: ACETAMINOPHEN 325 MG TABLET PO PRN (09:00)
[2017-09-12] MEDS ORDERED: ALBUTEROL SULFATE HFA 90 MCG/PUFF 8 GM INHALER IH PRN (09:00)
[2017-09-12] MEDS ORDERED: PETROLATUM,WHITE 71 GM JELLY TP PRN (09:00)
[2017-09-12] MEDS ORDERED: ONDANSETRON HCL 4 MG TABLET PO PRN (09:00)
[2017-09-12] MEDS: PREGABALIN 75 MG CAPSULE PO SCH ×3 (09:24→16:43)
[2017-09-12] MEDS: OMEGA-3/DHA/EPA/FISH OIL 1,000 MG CAPSULE PO SCH ×2 (09:24→13:48)
[2017-09-12] MEDS: ATENOLOL 50 MG TABLET PO SCH ×2 (09:25→13:47)
[2017-09-12] MEDS: DOCUSATE SODIUM 100 MG CAPSULE PO SCH ×2 (09:27→13:48)
[2017-09-12] MEDS: OMEPRAZOLE 20 MG CAPSULE PO SCH ×2 (09:27→13:47)
[2017-09-12 12:35] LABS: APPEARANCE,URINE CLEAR (CLEAR); BILIRUBIN,URINE NEGATIVE (NEGATIVE); GLUCOSE, URINE (UA) NEGATIVE (NEGATIVE); KETONES,URINE TRACE mg/dL (NEGATIVE); LEUKOCYTE ESTERASE ,URINE NEGATIVE (NEGATIVE); NITRATE,URINE NEGATIVE (NEGATIVE); OCCULT BLOOD,URINE NEGATIVE (NEGATIVE); PH,URINE 5.5 (5.0-8.0); PROTEIN,URINE TRACE (NEGATIVE)
[2017-09-12 13:06] VITALS: BP 134/72
[2017-09-12] MEDS: DIVALPROEX SODIUM 500 MG ER TABLET PO SCH (16:43)
[2017-09-12] MEDS: HALOPERIDOL 5 MG TABLET PO PRN (16:45)
[2017-09-12] MEDS: LORazepam 2 MG TABLET PO PRN (16:46)
[2017-09-12 18:52] VITALS: BP 131/78
[2017-09-12] MEDS ORDERED: PRAZOSIN HCL 1 MG CAPSULE PO SCH (21:00)
[2017-09-12] MEDS: QUEtiapine FUMARATE 200 MG ER TABLET PO SCH (21:41)
[2017-09-12] MEDS: PRAZOSIN HCL 1 MG CAPSULE PO SCH (21:41)
[2017-09-12] MEDS: ATORVASTATIN CALCIUM 20 MG TABLET PO SCH (21:41)
[2017-09-12] MEDS: ZOLPIDEM TARTRATE 10 MG TABLET PO PRN (22:37)
[2017-09-13 01:00] VITALS: BP 138/74
[2017-09-13 06:58] LABS: CHOL/HDL RATIO 4.3 (3.9-5.7)
[2017-09-13 08:45] VITALS: BP 102/64
[2017-09-13] MEDS: DIVALPROEX SODIUM 500 MG ER TABLET PO SCH ×2 (09:08→17:46)
[2017-09-13] MEDS: OMEPRAZOLE 20 MG CAPSULE PO SCH (09:08)
[2017-09-13] MEDS: ATENOLOL 50 MG TABLET PO SCH (09:08)
[2017-09-13] MEDS: PREGABALIN 75 MG CAPSULE PO SCH ×2 (09:08→17:46)
[2017-09-13] MEDS: VENLAFAXINE HCL 75 MG ER CAPSULE PO SCH (09:09)
[2017-09-13] MEDS: DOCUSATE SODIUM 100 MG CAPSULE PO SCH (09:09)
[2017-09-13] MEDS: OMEGA-3/DHA/EPA/FISH OIL 1,000 MG CAPSULE PO SCH (09:09)
[2017-09-13 17:02] VITALS: BP 101/54
[2017-09-13] MEDS: PRAZOSIN HCL 1 MG CAPSULE PO SCH (20:07)
[2017-09-13] MEDS: QUEtiapine FUMARATE 200 MG ER TABLET PO SCH (20:08)
[2017-09-13] MEDS: ATORVASTATIN CALCIUM 20 MG TABLET PO SCH (20:08)
[2017-09-14 01:49] VITALS: BP 102/63
[2017-09-14] MEDS: DOCUSATE SODIUM 100 MG CAPSULE PO SCH (08:13)
[2017-09-14] MEDS: DIVALPROEX SODIUM 500 MG ER TABLET PO SCH ×2 (08:13→16:17)
[2017-09-14] MEDS: VENLAFAXINE HCL 75 MG ER CAPSULE PO SCH (08:14)
[2017-09-14] MEDS: OMEGA-3/DHA/EPA/FISH OIL 1,000 MG CAPSULE PO SCH (08:14)
[2017-09-14] MEDS: PREGABALIN 75 MG CAPSULE PO SCH ×2 (08:14→16:16)
[2017-09-14] MEDS: OMEPRAZOLE 20 MG CAPSULE PO SCH (08:15)
[2017-09-14] MEDS: ATENOLOL 50 MG TABLET PO SCH (08:15)
[2017-09-14 09:20] VITALS: BP 142/81
[2017-09-14] MEDS: LORazepam 2 MG TABLET PO PRN (16:18)
[2017-09-14] MEDS: HALOPERIDOL 5 MG TABLET PO PRN (16:18)
[2017-09-14] MEDS: QUEtiapine FUMARATE 200 MG ER TABLET PO SCH (21:08)
[2017-09-14] MEDS: ATORVASTATIN CALCIUM 20 MG TABLET PO SCH (21:08)
[2017-09-14] MEDS: PRAZOSIN HCL 1 MG CAPSULE PO SCH (21:08)
[2017-09-14] MEDS: ZOLPIDEM TARTRATE 10 MG TABLET PO PRN (21:10)
[2017-09-15] MEDS: LORazepam 2 MG TABLET PO PRN (00:24)
[2017-09-15] MEDS: HALOPERIDOL 5 MG TABLET PO PRN (00:30)
[2017-09-15 00:42] VITALS: BP 123/67
[2017-09-15] MEDS: DIVALPROEX SODIUM 500 MG ER TABLET PO SCH ×2 (08:38→16:10)
[2017-09-15] MEDS: PREGABALIN 75 MG CAPSULE PO SCH ×2 (08:38→16:10)
[2017-09-15] MEDS: OMEGA-3/DHA/EPA/FISH OIL 1,000 MG CAPSULE PO SCH (08:38)
[2017-09-15] MEDS: OMEPRAZOLE 20 MG CAPSULE PO SCH (08:38)
[2017-09-15] MEDS: ATENOLOL 50 MG TABLET PO SCH (08:38)
[2017-09-15] MEDS: VENLAFAXINE HCL 75 MG ER CAPSULE PO SCH (08:38)
[2017-09-15] MEDS: DOCUSATE SODIUM 100 MG CAPSULE PO SCH (08:38)
[2017-09-15 13:09] VITALS: BP 124/84
[2017-09-15 19:59] VITALS: BP 125/75
[2017-09-15] MEDS: ATORVASTATIN CALCIUM 20 MG TABLET PO SCH (20:55)
[2017-09-15] MEDS: QUEtiapine FUMARATE 200 MG ER TABLET PO SCH (20:55)
[2017-09-15] MEDS: PRAZOSIN HCL 1 MG CAPSULE PO SCH (20:55)
[2017-09-15] MEDS: ZOLPIDEM TARTRATE 10 MG TABLET PO PRN (21:10)
[2017-09-16] MEDS: LORazepam 2 MG TABLET PO PRN (01:28)
[2017-09-16 01:29] VITALS: BP 104/76
[2017-09-16] MEDS: OMEPRAZOLE 20 MG CAPSULE PO SCH (08:55)
[2017-09-16] MEDS: DIVALPROEX SODIUM 500 MG ER TABLET PO SCH ×2 (08:55→16:08)
[2017-09-16] MEDS: OMEGA-3/DHA/EPA/FISH OIL 1,000 MG CAPSULE PO SCH (08:55)
[2017-09-16] MEDS: VENLAFAXINE HCL 75 MG ER CAPSULE PO SCH (08:55)
[2017-09-16] MEDS: PREGABALIN 75 MG CAPSULE PO SCH ×2 (08:55→16:08)
[2017-09-16] MEDS: ATENOLOL 50 MG TABLET PO SCH (08:56)
[2017-09-16] MEDS: DOCUSATE SODIUM 100 MG CAPSULE PO SCH (08:56)
[2017-09-16 10:45] VITALS: BP 108/56
[2017-09-16 10:55] VITALS: BP 108/56
[2017-09-16 17:26] VITALS: BP 117/78
[2017-09-16] MEDS: ATORVASTATIN CALCIUM 20 MG TABLET PO SCH (20:03)
[2017-09-16] MEDS: PRAZOSIN HCL 1 MG CAPSULE PO SCH (20:03)
[2017-09-16] MEDS: QUEtiapine FUMARATE 200 MG ER TABLET PO SCH (20:03)
[2017-09-17 05:15] VITALS: BP 116/58
[2017-09-17] MEDS ORDERED: OMEGA-3/DHA/EPA/FISH OIL 1,000 MG CAPSULE PO SCH (09:00)
[2017-09-17] MEDS: DIVALPROEX SODIUM 500 MG ER TABLET PO SCH ×2 (09:15→16:52)
[2017-09-17] MEDS: DOCUSATE SODIUM 100 MG CAPSULE PO SCH (09:15)
[2017-09-17] MEDS: OMEGA-3/DHA/EPA/FISH OIL 1,000 MG CAPSULE PO SCH (09:16)
[2017-09-17] MEDS: VENLAFAXINE HCL 75 MG ER CAPSULE PO SCH (09:16)
[2017-09-17] MEDS: PREGABALIN 75 MG CAPSULE PO SCH ×2 (09:16→16:52)
[2017-09-17] MEDS: OMEPRAZOLE 20 MG CAPSULE PO SCH (09:17)
[2017-09-17] MEDS: ATENOLOL 50 MG TABLET PO SCH (09:17)
[2017-09-17 09:43] VITALS: BP 120/74
[2017-09-17 17:02] VITALS: BP 130/78
[2017-09-17] MEDS: QUEtiapine FUMARATE 200 MG ER TABLET PO SCH (20:05)
[2017-09-17] MEDS: PRAZOSIN HCL 1 MG CAPSULE PO SCH (20:05)
[2017-09-17] MEDS: ATORVASTATIN CALCIUM 20 MG TABLET PO SCH (20:05)
[2017-09-17] MEDS: ZOLPIDEM TARTRATE 10 MG TABLET PO PRN (21:46)
[2017-09-18 00:50] VITALS: BP 104/66
[2017-09-18 06:59] LABS: BASOPHILS % (AUTO) 0.6 % (0.0-2.0); EOSINOPHILS % (AUTO) 1.1 % (1.0-6.0); HEMATOCRIT 36.6 % (36-46); HEMOGLOBIN 12.7 g/dL (12.0-16.0); LYMPHOCYTES # (AUTO) 2.1 K/uL (1.0-4.8); LYMPHOCYTES % (AUTO) 39.2 % (22.0-44.0); MEAN CORPUSCULAR HEMOGLOBIN 27.9 pg (26.0-34.0); MEAN CORPUSCULAR HGB CONC 34.7 G/dL (31.0-37.0); MEAN CORPUSCULAR VOLUME 80 fL (80-100); MONOCYTES # (AUTO) 0.9 K/uL (0.1-1.0); MONOCYTES % (AUTO) 16.7 % (2.0-9.0); NEUTROPHILS # (AUTO) 2.2 K/uL (1.8-7.7); NEUTROPHILS % (AUTO) 42.4 % (40.0-70.0); PLATELET COUNT (AUTO) 198 K/uL (150-450); RED BLOOD CELL COUNT(AUTO) 4.56 MIL/uL (4.00-5.20); RED CELL DISTRIBUTION WIDTH 16.2 % (11.5-14.5)
[2017-09-18 07:09] LABS: CALCIUM, TOTAL 8.2 mg/dL (8.8-10.5); CREATININE 1.26 mg/dL (0.60-1.30); MAGNESIUM 1.6 mg/dL (1.80-2.40); PHOSPHORUS 3.5 mg/dL (2.5-4.9); POTASSIUM 3.9 mmol/L (3.5-5.1)
[2017-09-18] MEDS: ATENOLOL 50 MG TABLET PO SCH (09:00)
[2017-09-18] MEDS ORDERED: CALCIUM POLYCARBOPHIL 625 MG TABLET PO SCH (09:00)
[2017-09-18] MEDS ORDERED: OMEGA-3/DHA/EPA/FISH OIL 1,000 MG CAPSULE PO SCH (09:00)
[2017-09-18] MEDS: DIVALPROEX SODIUM 500 MG ER TABLET PO SCH ×2 (09:11→16:06)
[2017-09-18] MEDS: DOCUSATE SODIUM 100 MG CAPSULE PO SCH (09:11)
[2017-09-18] MEDS: VENLAFAXINE HCL 75 MG ER CAPSULE PO SCH (09:11)
[2017-09-18] MEDS: PREGABALIN 75 MG CAPSULE PO SCH ×2 (09:12→16:06)
[2017-09-18] MEDS: OMEGA-3/DHA/EPA/FISH OIL 1,000 MG CAPSULE PO SCH (09:12)
[2017-09-18] MEDS: OMEPRAZOLE 20 MG CAPSULE PO SCH (09:12)
[2017-09-18 09:28] VITALS: BP 96/56
[2017-09-18 16:09] VITALS: BP 123/77
[2017-09-18] MEDS: QUEtiapine FUMARATE 200 MG ER TABLET PO SCH (20:43)
[2017-09-18] MEDS: PRAZOSIN HCL 1 MG CAPSULE PO SCH (20:43)
[2017-09-18] MEDS: ATORVASTATIN CALCIUM 20 MG TABLET PO SCH (20:43)
[2017-09-18] MEDS: LORazepam 2 MG TABLET PO PRN (20:43)
[2017-09-18] MEDS: ZOLPIDEM TARTRATE 10 MG TABLET PO PRN (20:43)
[2017-09-19 00:26] VITALS: BP 111/67
[2017-09-19] MEDS: DOCUSATE SODIUM 100 MG CAPSULE PO SCH (08:37)
[2017-09-19] MEDS: PREGABALIN 75 MG CAPSULE PO SCH ×2 (08:38→17:14)
[2017-09-19] MEDS: VENLAFAXINE HCL 75 MG ER CAPSULE PO SCH (08:38)
[2017-09-19] MEDS: DIVALPROEX SODIUM 500 MG ER TABLET PO SCH ×2 (08:38→17:14)
[2017-09-19] MEDS: OMEPRAZOLE 20 MG CAPSULE PO SCH (08:39)
[2017-09-19] MEDS: ATENOLOL 50 MG TABLET PO SCH (08:39)
[2017-09-19] MEDS: OMEGA-3/DHA/EPA/FISH OIL 1,000 MG CAPSULE PO SCH (08:39)
[2017-09-19 09:21] VITALS: BP 109/70
[2017-09-19 17:00] VITALS: BP 132/65
[2017-09-19] MEDS: MAGNESIUM OXIDE 400 MG TABLET PO SCH (17:15)
[2017-09-19] MEDS: QUEtiapine FUMARATE 200 MG ER TABLET PO SCH (21:04)
[2017-09-19] MEDS: ZOLPIDEM TARTRATE 10 MG TABLET PO PRN (21:04)
[2017-09-19] MEDS: PRAZOSIN HCL 1 MG CAPSULE PO SCH (21:06)
[2017-09-19] MEDS: ATORVASTATIN CALCIUM 20 MG TABLET PO SCH (21:06)
[2017-09-20 01:12] VITALS: BP 104/52
[2017-09-20] MEDS: VENLAFAXINE HCL 75 MG ER CAPSULE PO SCH (08:31)
[2017-09-20] MEDS: OMEPRAZOLE 20 MG CAPSULE PO SCH (08:31)
[2017-09-20] MEDS: DOCUSATE SODIUM 100 MG CAPSULE PO SCH (08:31)
[2017-09-20] MEDS: MAGNESIUM OXIDE 400 MG TABLET PO SCH ×2 (08:31→16:13)
[2017-09-20] MEDS: DIVALPROEX SODIUM 500 MG ER TABLET PO SCH ×2 (08:31→16:13)
[2017-09-20] MEDS: OMEGA-3/DHA/EPA/FISH OIL 1,000 MG CAPSULE PO SCH (08:31)
[2017-09-20] MEDS: ATENOLOL 50 MG TABLET PO SCH (08:32)
[2017-09-20] MEDS: PREGABALIN 75 MG CAPSULE PO SCH ×2 (08:32→16:13)
[2017-09-20 10:41] VITALS: BP 116/75
[2017-09-20 19:58] VITALS: BP 122/78
[2017-09-20] MEDS: QUEtiapine FUMARATE 200 MG ER TABLET PO SCH (20:10)
[2017-09-20] MEDS: ATORVASTATIN CALCIUM 20 MG TABLET PO SCH (20:10)
[2017-09-20] MEDS: PRAZOSIN HCL 1 MG CAPSULE PO SCH (20:10)
[2017-09-21] MEDS: ZOLPIDEM TARTRATE 10 MG TABLET PO PRN (01:23)
[2017-09-21 02:20] VITALS: BP 118/74
[2017-09-21 07:40] LABS: ANION GAP 5 mmol/L (8-16); CALCIUM, TOTAL 8.1 mg/dL (8.8-10.5); CARBON DIOXIDE 29 mmol/L (22-29); CHLORIDE 108 mmol/L (98-107); GLOMERULAR FILTR. RATE CALC > 60 mL/min (>60); GLUCOSE,RANDOM 88 mg/dL (70-110); POTASSIUM 4.3 mmol/L (3.5-5.1); SODIUM SERUM 142 mmol/L (136-145); UREA NITROGEN, BLOOD 21 mg/dL (7-18)
[2017-09-21] MEDS: PREGABALIN 75 MG CAPSULE PO SCH (08:06)
[2017-09-21] MEDS: DIVALPROEX SODIUM 500 MG ER TABLET PO SCH (08:06)
[2017-09-21] MEDS: VENLAFAXINE HCL 75 MG ER CAPSULE PO SCH (08:06)
[2017-09-21] MEDS: DOCUSATE SODIUM 100 MG CAPSULE PO SCH (08:07)
[2017-09-21] MEDS: ATENOLOL 50 MG TABLET PO SCH (08:07)
[2017-09-21] MEDS: OMEGA-3/DHA/EPA/FISH OIL 1,000 MG CAPSULE PO SCH (08:07)
[2017-09-21] MEDS: MAGNESIUM OXIDE 400 MG TABLET PO SCH (08:07)
[2017-09-21] MEDS: OMEPRAZOLE 20 MG CAPSULE PO SCH (08:07)
[2017-09-21] MEDS ORDERED: MAGOX PO (08:42)
[2017-09-21 09:21] VITALS: BP 119/78
== END 2017-09-21 10:15 | disposition home or self-care (01) | DRG 750 ==
LOC: EMS 03:13 → 3EI 05:00
PROVIDERS: ADMIT Psychiatry & Neurology Child & Adolescent Psychiatry; ATTEND Psychiatry & Neurology Psychiatry
DX: F25.1 Schizoaffective disorder, depressive type (principal); D69.6 Thrombocytopenia, unspecified; Z68.41 Body mass index [BMI] 40.0-44.9, adult; E66.01 Morbid (severe) obesity due to excess calories; R45.850 Homicidal ideations; I10 Essential (primary) hypertension; E78.1 Pure hyperglyceridemia; F60.3 Borderline personality disorder; F17.210 Nicotine dependence, cigarettes, uncomplicated; F41.9 Anxiety disorder, unspecified; E78.5 Hyperlipidemia, unspecified; G47.00 Insomnia, unspecified; J44.9 Chronic obstructive pulmonary disease, unspecified; F32.9 Major depressive disorder, single episode, unspecified; K21.9 Gastro-esophageal reflux disease without esophagitis; M79.7 Fibromyalgia; T42.6X5A Adverse effect of other antiepileptic and sedative-hypnotic drugs, initial encounter; Z86.73 Personal history of transient ischemic attack (TIA), and cerebral infarction without residual deficits; Z91.5 Personal history of self-harm; Z88.8 Allergy status to other drugs, medicaments and biological substances; Z79.899 Other long term (current) drug therapy
CPT/HCPCS: 83735; 84100; 87081; 93005; 97161; 97530; 99285; 99406; G0480; G0481; Q0162

== ENCOUNTER 2017-12-11 19:51 | Emergency (ER) | payer MEDICAID, OTHER ==
[~2017-12-11] VITALS: Ht 180.3 cm; Wt 136.2 kg
[~2017-12-11 19:51] MED LIST changes: +DIVA-78 PO; -DIVA500T35 PO; -PREG75 PO; +VITAD1000 PO
[2017-12-11] MEDS ORDERED: FURO20 PO (20:24)
[2017-12-11] MEDS ORDERED: PREG75 PO (20:24)
[2017-12-11] MEDS ORDERED: PANT40TA25 PO (20:24)
[2017-12-11] MEDS ORDERED: LACT30L PO (20:24)
[2017-12-11] MEDS ORDERED: TOPI25 PO (20:24)
[2017-12-11] MEDS ORDERED: DIVA-78 PO (20:24)
[2017-12-11] MEDS ORDERED: FUROSEMIDE 20 MG TABLET PO ONE (21:15)
[2017-12-11] MEDS ORDERED: ACETAMINOPHEN 500 MG TABLET ONE (21:19)
[2017-12-11 21:36] VITALS: BP 127/62
== END 2017-12-11 21:54 | disposition home or self-care (01) ==
LOC: EMS 19:52
DX: S90.822A Blister (nonthermal), left foot, initial encounter (principal); F20.0 Paranoid schizophrenia; R60.0 Localized edema; J44.9 Chronic obstructive pulmonary disease, unspecified; K21.9 Gastro-esophageal reflux disease without esophagitis; E78.00 Pure hypercholesterolemia, unspecified; I10 Essential (primary) hypertension; F41.9 Anxiety disorder, unspecified; F32.9 Major depressive disorder, single episode, unspecified; F17.210 Nicotine dependence, cigarettes, uncomplicated; Z86.73 Personal history of transient ischemic attack (TIA), and cerebral infarction without residual deficits; Z88.8 Allergy status to other drugs, medicaments and biological substances; Z88.6 Allergy status to analgesic agent; X58.XXXA Exposure to other specified factors, initial encounter; Y93.89 Activity, other specified; Y92.89 Other specified places as the place of occurrence of the external cause; Y99.8 Other external cause status
CPT/HCPCS: 99283